=== PATIENT | female | born 1975 | race African-American/Black ===

== ENCOUNTER 2016-11-26 01:00 | Inpatient (IN) | payer OTHER ==
--- NOTE | ~2016-11-26 | HP ---
Unit #: [id number] #: [id number] Patient: GIANNA BYERS [id number] [place] [address] [id number] I MR#: [id number] NAME: GIANNA BYERS. ROOM: P183 Age: 41 Sex: F Admission Date: 11/26/2016 : 1975 Attending Physician: Andrés Catsro M.D. Admitting Physician: Andrés Castro M.D. Primary Care Physician: Primary Care Physician No HISTORY AND PHYSICAL HISTORY OF PRESENT ILLNESS Gianna is a 41 year old admitted to [facility] because of her drug use. She smokes crack cocaine. PAST MEDICAL HISTORY 1. Long history of cocaine use. 2. Morbid obesity. PAST SURGICAL HISTORY Nothing reported. ALLERGIES No known drug allergies. SOCIAL HISTORY Smokes greater than 1 pack per day. Denies alcohol. Admits to a long history of cocaine use. FAMILY HISTORY Medically noncontributory. REVIEW OF SYSTEMS CONSTITUTIONAL: No fever or chills. HEENT: Denies any sore throat, ear pain or runny nose. CARDIOVASCULAR: Denies chest pain, irregular heart rhythm or palpitations. CHEST: Denies shortness of breath or cough. No hemoptysis. GASTROINTESTINAL: Denies nausea, vomiting, diarrhea or chronic constipation. ENDOCRINE: Denies history of increased thirst or urination. No recent significant weight loss or gain. GENITOURINARY: Denies dysuria, frequency, or hematuria. SKIN: Denies any rashes. HEMATOLOGIC: Denies history of increased bleeding or bruising. MUSCULOSKELETAL: Denies any hot, swollen joints. No generalized muscle pain. NEUROLOGIC: Denies problems with vision or speech. No frequent, severe headaches. No numbness, tingling or weakness in any extremities. Denies loss of bladder or bowel control. CURRENT MEDICATIONS 1. Detox protocol. 2. Wellbutrin XL 150 mg q.a.m. Unit #: [id number] #: [id number] Patient: GIANNA BYERS PHYSICAL EXAMINATION GENERAL: Alert, morbidly obese, no apparent distress. VITAL SIGNS: Blood pressure 124/68, heart rate 60, respirations 16, temperature 98.6. WEIGHT: 272. HEIGHT: 5 feet 9 inches. SKIN: Warm and dry without rash or lesion. HEENT: Normocephalic. TMs not viewed. Oral and nasal passages clear. Conjunctivae clear. PERRLA. EOMs intact. NECK: Supple without lymphadenopathy or thyromegaly. HEART: Regular rate and rhythm without murmur. LUNGS: Clear. ABDOMEN: Soft, nontender. : Not done. EXTREMITIES: No evidence of cyanosis, clubbing or edema. Moves all without focal deficit. NEUROLOGICAL: Grossly within normal limits. Cranial Nerves: II: Visual tan are intact. III, IV AND : Extraocular movements are intact. Pupils are equal, round and reactive to light. V: Facial sensation is grossly normal. VII: Facial movements and expression are normal. VIII: Auditory acuity grossly intact. IX, X: Uvula is midline. Phonation is normal. XI: Patient shrugs shoulders and turns head normally. XII: Tongue protrudes in the midline. Sensory and Motor Function: Sensory and motor sensation is grossly normal. Motor: moves all extremities well. Coordination: Gait is normal. Deep Tendon Reflexes: Intact. IMPRESSION Psychiatric admission. RECOMMENDATIONS PSYCHIATRIC: Per psychiatrist. MEDICAL: 1. See no contraindications to participate in facility's activities. 2. We are going to place a PPD on her arm to be read in 48 to 72 hours. MEDICAL PROGNOSIS Good. MEDICAL CONDITION Stable. Dictated by... Neelam Chopra PHopeAHope-Jaron. for David Sierra/renée TD: 11/26/2016 23:03 JOB #: [id number] Unit #: [id number] #: [id number] Patient: GIANNA BYERS HISTORY AND PHYSICAL Page 1 of 1 X Neelam Chopra HISTORY AND PHYSICAL
--- NOTE | ~2016-11-26 | PN ---
Unit #: [id number] #: [id number] Patient: MARCUS HANSEN [id number] [facility] [address] [place] [address] [id number] I MR#: [id number] NAME: MARCUS HANSEN. ROOM: P183 Age: 41 Sex: F Admission Date: 11/26/2016 : 1975 Attending Physician: Andrés Castro M.D. Admitting Physician: Andrés Castro M.D. Primary Care Physician: Primary Care Physician Maria RO NOTES DATE 11/27/2016 DISCUSSION Ms. Hansen is a 41-year-old female with substance abuse and mood disorder who was seen today and chart was reviewed and case was discussed with the staff. She was seen to be anxious, withdrawn, seclusive to herself, although she was able to carry on meaningful conversation stating that she has been working with the clinical social work therapist to go to a rehab level of care and would like a TB skin test to be placed. Meanwhile, she has been taking medications including Wellbutrin which was just initiated yesterday without any tolerability issues. MENTAL STATUS EXAMINATION Middle-aged female who was casually dressed with fair personal hygiene and appears to be in no acute distress or discomfort. She was awake and alert with good attention and concentration. Her mood was anxious with congruent affect. She denies any suicidal or homicidal ideation. Her insight and judgement remains slightly impaired. TREATMENT PLAN 1. Will continue on current medications and treatment protocol. Will monitor her response and make further adjustments as needed. 2. Will continue to follow up. Dictated by... David Batista/renée TD: 11/27/2016 21:11 JOB #: [id number] Unit #: [id number] #: [id number] Patient: MARCUS HANSEN ABDIFATAH RO NOTES Page 1 of 1 X Andrés Castro MD PROGRESS NOTE
--- NOTE | ~2016-11-26 | DS ---
Unit #: [id number] #: [id number] Patient: MARCUS HANSEN [id number] [facility] [address] [place] [address] [id number] I MR#: [id number] NAME: MARCUS HANSEN. ROOM: 83 Age: 41 Sex: F Admission Date: 11/26/2016 : 1975 Discharge Date: 11/29/2016 Attending Physician: Andrés Castro M.D. Primary Care Physician: Primary Care Physician No DISCHARGE SUMMARY IDENTIFYING DATA Ms. Hansen is a 41-year-old female, who was self-referred to the hospital. DISCHARGE DIAGNOSES Psychiatric: Major depressive disorder, recurrent, moderate, without psychotic features; cocaine dependence, moderate. Medical: None. Stressors: Moderate psychosocial stressors. HISTORY OF PRESENT ILLNESS Please see initial psychiatric evaluation for details. PAST PSYCHIATRIC HISTORY Please see initial psychiatric evaluation for details. PAST MEDICAL HISTORY Please see initial psychiatric evaluation for details. HOSPITAL COURSE The patient was admitted to the adult chemical dependency and psychiatric unit at [facility] and was oriented to the hospital environment. Routine p.r.n. medications were initiated, and she was started on Wellbutrin XL 150 mg in the morning as an antidepressant and she was closely monitored. She was initially seen to be anxious, withdrawn, and rather seclusive to herself; though, she was compliant with treatment recommendations and was taking the medications regularly and was tolerating them fairly well and was able to show a decent therapeutic response to the medications and was able to come out of the detox without any complications and was willing to continue treatment on an outpatient basis and as such, it was decided that she will be discharged home and will continue treatment on an outpatient basis. DISCHARGE MEDICATIONS Wellbutrin XL 150 mg in the morning for depression. DISCHARGE CONDITION Stable. PROGNOSIS Fair. Dictated by... Unit #: [id number] #: [id number] Patient: MARCUS HANSEN David Batista/sanchez TD: 11/30/2016 16:32 JOB #: [id number] DISCHARGE SUMMARY Page 1 of 1 X Andrés Castro MD DISCHARGE SUMMARY
[~2016-11-26 01:00] MED LIST: BACTRIM DS TABL1 TAB PO; FLEXERIL PO; ULTRAM PO; VICODIN PO
[2016-11-26 12:32] LABS: BASOPHIL# 0.1 X10e3 (0-0.3); BASOPHIL% 0.6 % (0-2.5); EOSINOPHIL# 0.2 X10e3 (0-0.7); EOSINOPHIL% 2.2 % (0.0-7.0); HEMOGLOBIN 11.3 gm/dL (12.0-16.0); LYMPHOCYTE# 2.5 X10e3 (1.0-3.5); LYMPHOCYTE% 27.9 % (17.0-45.0); MEAN CELL VOLUME 85.3 FL (83-96); MEAN CORPUSCULAR HEMOGLOBIN 27.6 PG (28-34); MEAN CORPUSCULAR HGB CONC 32.3 g/dL (30-36); MEAN PLATELET VOLUME 9.2 FL (6.5-11.5); MONOCYTE# 0.6 X10e3 (0-1.0); NEUTROPHIL# 5.5 X10e3 (1.5-7.1); NEUTROPHIL% 62.3 % (40-75); PLATELET COUNT 222 X10e3 (140-420); RED CELL DISTRIBUTION WIDTH 14.3 % (11.0-15.5); WHITE BLOOD COUNT 8.9 X10e3 (4.0-10.5)
[2016-11-26 12:42] LABS: DIFF IND NO
[2016-11-26 12:59] LABS: ALBUMIN SERUM 3.4 g/dL (3.5-5.0); BILIRUBIN,TOTAL 0.5 mg/dL (0.2-2.0); BUN/CREATININE RATIO 21.11; CALCIUM SERUM 8.8 mg/dL (8.4-10.2); CREATININE SERUM 0.9 mg/dL (0.6-1.4); GLOM FILT RATE Estimated 92.1 mL/min (>60); POTASSIUM 3.9 mmol/L (3.5-5.1); PROTEIN TOTAL SERUM 6.1 g/dL (6.0-8.3)
== END 2016-11-29 17:40 | DRG 885 ==
LOC: P1E 04:37
PROVIDERS: Psychiatry & Neurology Psychiatry
PROC: HZ2ZZZZ Detoxification Services for Substance Abuse Treatment (ICD-10-PCS; principal; 2016-11-26)
DX: F33.1 Major depressive disorder, recurrent, moderate (principal); F14.20 Cocaine dependence, uncomplicated; E66.01 Morbid (severe) obesity due to excess calories; F17.210 Nicotine dependence, cigarettes, uncomplicated
CPT/HCPCS: 80053; 84703; 85025; 86592